=== PATIENT | male | born 1960 | race Caucasian/White ===

== ENCOUNTER 2019-04-27 14:38 | Emergency (ER) | payer OTHER ==
[2019-04-27 15:46] LABS: Urine Blood NEGATIVE (NEG); Urine Glucose NEGATIVE (NEG); Urine Protein NEGATIVE (NEG); Urine Specific Gravity 1.025 (1.005-1.030)
[2019-04-27 15:59] LABS: Urine Bacteria NONE SEEN /HPF (NONE SEEN); Urine Culture Reflex Order NOT NEEDED; Urine RBC <5 /HPF (NONE SEEN)
[2019-04-27] MEDS ORDERED: DIAZEPAM 2 MG TABLET ONE (16:03)
[2019-04-27] MEDS ORDERED: NA CHLORIDE 0.9% 1,000 ML ONE (16:04)
[2019-04-27] MEDS ORDERED: MECLIZINE HCL 12.5 MG TAB ONE (16:04)
[2019-04-27] MEDS ORDERED: ONDANSETRON 4 MG/2 ML VIAL ONE (16:04)
[2019-04-27 16:06] LABS: Absolute Lymphocytes (CBC) 1.6 K/uL (0.7-4.9); Basophils % 0.5 % (0-1.3); Eosinophils % 1.1 % (0-4.4); Hematocrit 46.9 % (39.6-49.0); Lymphocytes % 13.3 % (15.3-44.8); MPV 8.6 fL (7.6-11.3); Monocytes % 5.6 % (3.3-12.3); RBC Red Blood Cell Count 5.28 M/uL (4.33-5.43)
[2019-04-27 16:16] LABS: BUN Blood Urea Nitrogen 18 mg/dL (7-18); Bicarbonate 27 mmol/L (21-32); Glucose Level 102 mg/dL (74-106); Potassium 3.6 mmol/L (3.5-5.1); Sodium Level 137 mmol/L (136-145); Troponin (Emerg Dept Use Only) < 0.02 ng/mL (0.0-0.045)
--- NOTE | 2019-04-27 17:22 | RAD REPORT ---
EXAM DESCRIPTION: CT - Head Brain Wo Cont - 04/27/2019 4:55 pm CLINICAL HISTORY: Dizziness, headache COMPARISON: None. TECHNIQUE: Axial 5 mm thick images of the head were obtained without IV contrast. All CT scans are performed using dose optimization technique as appropriate and may include automated exposure control or mA/KV adjustment according to patient size. FINDINGS: No intracranial hemorrhage, mass, edema or shift of mid-line structures. No acute infarcti on changes seen. No abnormal extra-axial fluid collections. Ventricles are normal. Mastoid air cells and visualized portions of the paranasal sinuses are clear. No acute bony findings. IMPRESSION: Negative non-contrast CT head examination.
--- NOTE | 2019-04-27 17:25 | RAD REPORT ---
EXAM DESCRIPTION: CT - Head angio - 04/27/2019 4:55 pm TECHNIQUE: During dynamic enhancement using nonionic IV contrast, axial 1 millimeter thick images of the head were obtained. Sagittal and axial reconstruction images were generated and reviewed. All CT scans are performed using dose optimization technique as appropriate and may include automated exposure control or mA/KV adjustment according to patient size. COMPARISON: CT head same date FINDINGS: No aneurysm or vascular malformation identified. Major venous sinuses are patent. No stenosis, named branch occlusion, vasculitis or other significant vascular finding identifiable. IMPRESSION: Negative CT angio head examination.
--- NOTE | 2019-04-27 17:26 | RAD REPORT ---
EXAM DESCRIPTION: CT - Neck Angio - 04/27/2019 4:57 pm CLINICAL HISTORY: Loss of consciousness, stroke-like symptoms TECHNIQUE: During dynamic enhancement using nonionic IV contrast, axial 2 mm thick images of the nec k were obtained. Sagittal and axial reconstruction images were generated and reviewed. All CT scans are performed using dose optimization technique as appropriate and may include automated exposure control or mA/KV adjustment according to patient size. COMPARISON: CT head same date, CT angio head same date FINDINGS: No aneurysm or vascular malformation identified. No carotid or vertebral dissection. No aortic arch or great vessel origin abnormality seen. Vertebral artery origins unremarkable as well . No stenosis, vasculitis or other significant carotid artery finding. No focal abnormality of either vertebral artery. Basilar artery is normal. Imaged portions of each subclavian artery unremarkable as well. IMPRESSION: Negative CT angio neck examination.
--- NOTE | 2019-04-27 18:04 | EDPHYS ---
Physician Documentation [facility] Name: Saran Lopez Age: 58 yrs Sex: Male : 1960 Arrival Date: 04/27/2019 Time: 14:39 Bed 13 Private MD: None, None ED Physician Douglas Chaves HPI: 04/27 15:54 This 58 yrs old Male presents to ER via Ambulatory with complaints of rn Dizziness. 15:54 The patient presents with sense of spinning. Onset: The symptoms/episode began/occurred rn last night. Context: occurred at home, occurred while the patient was at rest. Modifying factors: The symptoms are alleviated by holding head still, the symptoms are aggravated by movement of head, standing up, changing position. Severity of symptoms: At their worst the symptoms were moderate in the emergency department the symptoms have improved. The patient has experienced similar episodes in the past. Reports here on vacation, had 10-11 beers yesterday, went to bed, was laying down when felt sense of spinning/dizziness, is intermittent, is able to walk without falling, no focal neurological complaint, reports has had dizzy spells in past, reports assoc nausea. Decreased water intake as well. No vision changes, no speech problem. Negative for vomiting/diarrhea. No abd pain.. Historical: - Allergies: 14:49 Codeine; hj 14:49 Morphine; hj - PMHx: 14:49 Hypertension; Hyperlipidemia; hj - PSHx: 14:49 Knee surgery; hj - Immunization history:: Adult Immunizations unknown. - Family history:: not pertinent. - Social history:: Smoking status: Patient/guardian denies using tobacco. - Ebola Screening: : No symptoms or risks identified at this time. - Hospitalizations: : No recent hospitalization is reported. ROS: 15:54 Constitutional: Negative for fever, chills, and weight loss, Eyes: Negative for injury, rn pain, redness, and discharge, ENT: Negative for injury, pain, and discharge, Neck: Negative for injury, pain, and swelling, Cardiovascular: Negative for chest pain, palpitations, and edema, Respiratory: Negative for shortness of breath, cough, wheezing, and pleuritic chest pain, Abdomen/GI: + nausea, negative for vomiting/diarrhea MS/Extremity: Negative for injury and deformity, Skin: Negative for injury, rash, and discoloration, Neuro: Negative for numbness, tingling, and seizure. Exam: 15:54 Constitutional: This is a well developed, well nourished patient who is awake, alert, rn and in no acute distress. Sitting upright wearing sunglasses. Head/Face: Normocephalic, atraumatic. Eyes: Pupils equal round and reactive to light, extra-ocular motions intact. Lids and lashes normal. Conjunctiva and sclera are non-icteric and not injected. Cornea within normal limits. Periorbital areas with no swelling, redness, or edema. ENT: dry MM Neck: Trachea midline, no thyromegaly or masses palpated, and no cervical lymphadenopathy. Supple, full range of motion without nuchal rigidity, or vertebral point tenderness. No Meningismus. Abdomen/GI: soft, non-tender Skin: Warm, dry MS/ Extremity: Pulses equal, no cyanosis. Neurovascular intact. Full, normal range of motion. Equal circumference. Neuro: Awake and alert, GCS 15, oriented to person, place, time, and situation. Cranial nerves II-XII grossly intact. Motor strength 5/5 in all extremities. Sensory grossly intact. Cerebellar exam normal. Vital Signs: 14:49 BP 157 / 83; Pulse 48; Resp 20; Temp 97.8(O); Pulse Ox 100% on R/A; Weight 111.13 kg; hj Height 5 ft. 11 in. (180.34 cm); Pain 2/10; 16:01 BP 131 / 76; Pulse 43; Resp 14; Temp 97.7(TE); Pulse Ox 99% on R/A; mh5 17:01 BP 145 / 84; Pulse 54; Resp 19 S; Pulse Ox 98% on R/A; ca1 17:46 BP 110 / 63; Pulse 44; Resp 13; Temp 97.9(TE); Pulse Ox 98% on R/A; mh5 14:49 Body Mass Index 34.17 (111.13 kg, 180.34 cm) MDM: 15:04 Patient medically screened. rn 16:34 Response to treatment: the patient's symptoms have mildly improved after treatment. ED rn course: Pt feels better, HR dropped to 39, still sinus, going to CT. 17:59 Differential diagnosis: cardiac arrhythmia, generalized weakness, hypovolemia, rn idiopathic dizziness, near-syncope, vertigo. Data reviewed: vital signs, nurses notes, lab test result(s), EKG, radiologic studies, CT scan, and as a result, I will discharge patient. Counseling: I had a detailed discussion with the patient and/or guardian regarding: the historical points, exam findings, and any diagnostic results supporting the discharge/admit diagnosis, lab results, radiology results, the need for outpatient follow up, to return to the emergency department if symptoms worsen or persist or if there are any questions or concerns that arise at home. Special discussion: I discussed with the patient/guardian in detail that at this point there is no indication for admission to the hospital. It is understood, however, that if the symptoms persist or worsen the patient needs to return immediately for re-evaluation. Based on the history and exam findings, there is no indication for further emergent testing or inpatient evaluation. I discussed with the patient/guardian the need to see the milk pickup driver for further evaluation of the symptoms. I discussed with the patient/guardian the need to see the primary care provider for further evaluation of the symptoms. ED course: Patient states feels much better, is ambulatory to bathroom, smiling, states ready to go. Negative CT and CTA head/neck, bradycardia is likely due to his bystolic, a more B1 gareth, and patient states even before bystolic his HR was always around 60. His symptoms improved while HR remained the same and even dropped for a bit, so unlikely bradycardia causing symptoms, likely just made vertigo worse. TOld him will dc home with meclizine prn, zofran prn, needs to hold bystolic until sees his doctor/cardiology, and given return precautions. . 04/27 15:22 Order name: CBC with Diff; Complete Time: 17: rn 04/27 15:22 Order name: Basic Metabolic Panel; Complete Time: 17: rn 04/27 15:22 Order name: Urine Microscopic Only; Complete Time: 16: rn 04/27 15:22 Order name: Troponin (emerg Dept Use Only); Complete Time: 17: rn 04/27 15:44 Order name: Urine Dipstick--Ancillary (enter results) bd 04/27 15:49 Order name: Urine Dipstick-Ancillary; Complete Time: 16:01 EDMS 04/27 14:51 Order name: EKG; Complete Time: 14:52 04/27 15:22 Order name: CT Head Brain wo Cont; Complete Time: 17:34 rn 04/27 15:22 Order name: CT Head Angio; Complete Time: 17:34 rn 04/27 15:22 Order name: CT Neck Angio; Complete Time: 17:34 rn 04/27 15:22 Order name: IV Start; Complete Time: 16:17 rn 04/27 15:22 Order name: Urine Dipstick-Ancillary (obtain specimen); Complete Time: 16:02 rn Administered Medications: 15:55 Drug: NS 0.9% 1000 ml Route: IV; Rate: 1000 ml; Site: right antecubital; ph 17:00 Follow up: Response: No adverse reaction; IV Status: Completed infusion ca1 18:26 Follow up: IV Status: Completed infusion ca1 15:55 Drug: Zofran 4 mg Route: IVP; Site: right antecubital; ph 18:00 Follow up: Response: No adverse reaction; Nausea is decreased ca1 15:55 Drug: Meclizine 50 mg Route: PO; ph 18:00 Follow up: Response: No adverse reaction; Marked relief of symptoms ca1 15:55 Drug: Valium 2 mg Route: PO; ph 18:25 Follow up: Response: No adverse reaction ca1 Disposition: 04/27/19 18:03 Discharged to Home. Impression: Vertigo, Sinus Bradycardia, Dehydration. - Condition is Stable. - Discharge Instructions: Bradycardia, Adult, Dehydration, Adult, Vertigo. - Prescriptions for Zofran ODT 4 mg Oral tablet,disintegrating - place 1 tablet by TRANSLINGUAL route every 8 hours As needed; 20 tablet. Meclizine 25 mg Oral Tablet - take 1 tablet by ORAL route every 8 hours As needed; 30 tablet. - Medication Reconciliation Form, Thank You Letter, Antibiotic Education, Prescription Opioid Use form. - Follow up: Private Physician; When: As needed; Reason: Recheck today's complaints, Re-evaluation by your physician. - Problem is new. - Symptoms have improved. - Notes: Hold bystolic until you get back home, due to bradycardic episodes. Signatures: Dispatcher [employer] EDDouglas Garcia MD MD rn Hall, Patricia, RN RN Catarino Amezquita RN RN Acob, Fouzia, RN RN ca1 Corrections: (The following items were deleted from the chart) 15:58 15:54 Constitutional: Negative for fever, chills, and weight loss, Eyes: Negative for rn injury, pain, redness, and discharge, ENT: Negative for injury, pain, and discharge, Neck: Negative for injury, pain, and swelling, Cardiovascular: Negative for chest pain, palpitations, and edema, Respiratory: Negative for shortness of breath, cough, wheezing, and pleuritic chest pain, Abdomen/GI: + nausea, negative for vomiting/diarrhea MS/Extremity: Negative for injury and deformity, Skin: Negative for injury, rash, and discoloration, Neuro: Negative for numbness, tingling, and seizure, rn 16:00 15:54 Constitutional: This is a well developed, well nourished patient who is awake, rn alert, and in no acute distress. Sitting upright wearing sunglasses. Head/Face: Normocephalic, atraumatic. rn 18:28 18:03 04/27/2019 18:03 Discharged to Home. Impression: Vertigo; Sinus Bradycardia; ca1 Dehydration. Condition is Stable. Forms are Medication Reconciliation Form, Thank You Letter, Antibiotic Education, Prescription Opioid Use. Follow up: Private Physician; When: As needed; Reason: Recheck today's complaints, Re-evaluation by your physician. Problem is new. Symptoms have improved. rn
--- NOTE | 2019-04-27 18:04 | ER ---
Nurse's Notes [facility] Name: Saran Lopez Age: 58 yrs Sex: Male : 1960 Arrival Date: 04/27/2019 Time: 14:39 Bed 13 Private MD: None, None Diagnosis: Vertigo;Sinus Bradycardia;Dehydration Presentation: 04/27 14:46 Presenting complaint: Patient states: [place] from out of town and last night around 10 pm naveed waterman started feeling dizzy, and tightness on my chest, nausea; reports headache, went to urgent care for check up today, was told his HR was on the 50's which is not normal;. Transition of care: patient was not received from another setting of care. Onset of symptoms was April 27, 2019. Risk Assessment: Do you want to hurt yourself or someone else? Patient reports no desire to harm self or others. Initial Sepsis Screen: Does the patient meet any 2 criteria? No. Patient's initial sepsis screen is negative. Does the patient have a suspected source of infection? No. Patient's initial sepsis screen is negative. Care prior to arrival: None. 14:46 Method Of Arrival: Ambulatory 14:46 Acuity: JOSE 2 ph Historical: - Allergies: 14:49 Codeine; hj 14:49 Morphine; hj - PMHx: 14:49 Hypertension; Hyperlipidemia; hj - PSHx: 14:49 Knee surgery; hj - Immunization history:: Adult Immunizations unknown. - Family history:: not pertinent. - Social history:: Smoking status: Patient/guardian denies using tobacco. - Ebola Screening: : No symptoms or risks identified at this time. - Hospitalizations: : No recent hospitalization is reported. Screenin:08 Abuse screen: Denies threats or abuse. Denies injuries from another. Nutritional ph screening: On. Tuberculosis screening: No symptoms or risk factors identified. Fall Risk No fall in past 12 months (0 pts). No secondary diagnosis (0 pts). IV access (20 points). Ambulatory Aid- None/Bed Rest/Nurse Assist (0 pts). Gait- Weak (10 pts.). Mental Status- Oriented to own ability (0 pts). Total Serrano Fall Scale indicates Low Risk Score (25-44 pts). Fall prevention measures have been instituted. Side Rails Up X 2 Placed close to Nursing Station Frequent Obs/Assesments occuring Family Present and informed to notify staff if they need to leave bedside As available Patient and Family Educated on Fall Prevention Program and strategies. Assessment: 15:15 General: Appears in no apparent distress. comfortable, well groomed, Behavior is calm, ph cooperative, appropriate for age, Denies fever, feeling ill. Pain: Complains of pain in head. Neuro: Level of Consciousness is awake, alert, obeys commands, Oriented to person, place, time, situation, Moves all extremities. Full function Speech is normal, Reports dizziness, headache. Cardiovascular: Reports fatigue, lightheadedness, nausea, Denies chest pain, palpitations, shortness of breath, vomiting, Capillary refill < 3 seconds in bilateral fingers Patient's skin is warm and dry. Rhythm is sinus bradycardia. Respiratory: Airway is patent Respiratory effort is even, unlabored, Respiratory pattern is regular, symmetrical. GI: Reports nausea, Patient currently denies abdominal pain, diarrhea, vomiting. : No signs and/or symptoms were reported regarding the genitourinary system. Derm: Skin is intact, Skin is pink, warm \T\ dry. Musculoskeletal: Circulation, motion, and sensation intact. Range of motion: intact in all extremities. 16:17 Reassessment: Patient appears in no apparent distress at this time. Patient and/or ph family updated on plan of care and expected duration. Pain level reassessed. Patient is alert, oriented x 3, equal unlabored respirations, skin warm/dry/pink. Pt resting quietly, awaiting lab results and CT scan, SO at bedside. 17:01 Reassessment: Patient appears in no apparent distress at this time. Patient and/or ca1 family updated on plan of care and expected duration. Pain level reassessed. Patient is alert, oriented x 3, equal unlabored respirations, skin warm/dry/pink. Pt from CT scan with nurse and monitor. Pt tolerated procedure well without C/O N/V. 18:10 Reassessment: Patient appears in no apparent distress at this time. Patient is alert, ca1 oriented x 3, equal unlabored respirations, skin warm/dry/pink. Vital Signs: 14:49 BP 157 / 83; Pulse 48; Resp 20; Temp 97.8(O); Pulse Ox 100% on R/A; Weight 111.13 kg; hj Height 5 ft. 11 in. (180.34 cm); Pain 2/10; 16:01 BP 131 / 76; Pulse 43; Resp 14; Temp 97.7(TE); Pulse Ox 99% on R/A; mh5 17:01 BP 145 / 84; Pulse 54; Resp 19 S; Pulse Ox 98% on R/A; ca1 17:46 BP 110 / 63; Pulse 44; Resp 13; Temp 97.9(TE); Pulse Ox 98% on R/A; mh5 14:49 Body Mass Index 34.17 (111.13 kg, 180.34 cm) ED Course: 14:39 Patient arrived in ED. dl4 14:39 None, None is Private Physician. dl4 14:48 Triage completed. hj 14:50 Arm band placed on left wrist. hj 15:04 Douglas Chaves MD is Attending Physician. rn 15:31 EKG done, by histopath tech. reviewed by Douglas Chaves MD. 3 15:34 Candie Raphael, RN is Primary Nurse. ph 15:40 Initial lab(s) drawn, by sd, sent to lab. Inserted saline lock: 20 gauge in right ph antecubital area, using aseptic technique. Blood collected. 15:41 Radiology exam delayed due to lab results not completed at this time. (BUN/Creatinine) nj IV insertion attempt and/or patient not having appropriate IV at this time. 16:01 Patient has correct armband on for positive identification. Placed in gown. Bed in low mh5 position. Call light in reach. Side rails up X 1. Adult w/ patient. Warm blanket given. cafeteria monitor on. Pulse ox on. NIBP on. 16:02 Urine Dipstick--Ancillary (enter results) Sent. [facility] 16:02 Urine collected: clean catch specimen, clear. mh5 16:[address] nj 16:56 CT Head Brain wo Cont In Process Unspecified. EDMS 16:56 CT Head Angio In Process Unspecified. EDMS 16:56 CT Neck Angio In Process Unspecified. EDMS 16:56 CT completed. Patient tolerated procedure well. Patient moved to CT. Patient moved back nd from CT. 18:20 No provider procedures requiring assistance completed. ca1 18:20 IV discontinued, intact, bleeding controlled. ca1 Administered Medications: 15:55 Drug: NS 0.9% 1000 ml Route: IV; Rate: 1000 ml; Site: right antecubital; ph 17:00 Follow up: Response: No adverse reaction; IV Status: Completed infusion ca1 18:26 Follow up: IV Status: Completed infusion ca1 15:55 Drug: Zofran 4 mg Route: IVP; Site: right antecubital; ph 18:00 Follow up: Response: No adverse reaction; Nausea is decreased ca1 15:55 Drug: Meclizine 50 mg Route: PO; ph 18:00 Follow up: Response: No adverse reaction; Marked relief of symptoms ca1 15:55 Drug: Valium 2 mg Route: PO; ph 18:25 Follow up: Response: No adverse reaction ca1 Outcome: 18:03 Discharge ordered by . rn 18:20 Discharged to home ambulatory, with family. ca1 18:20 Condition: stable 18:20 Discharge instructions given to patient, Instructed on discharge instructions, follow up and referral plans. medication usage, Demonstrated understanding of instructions, follow-up care, medications, Prescriptions given X 2. 18:28 Patient left the ED. ca1 Signatures: Dispatcher [employer] EDMS Douglas Chaves MD MD rn Hall, Patricia, RN RN ph Joaquin, Henry, RN RN hj Jordan, Nathan nj Martinez, Maria 5 Asuncion [place] 3 Jose Manuel Leo 4 Fouzia Medina RN RN ca1 Corrections: (The following items were deleted from the chart) 14:51 14:49 Pulse 48bpm; Resp 20bpm; Pulse Ox 100% RA; Temp 97.8F Oral; 111.13 kg; Height 5 hj ft. 11 in.; BMI: 34.1; Pain 2/10; hj 14:52 14:49 Pulse 48bpm; Resp 20bpm; Pulse Ox 100% RA; Temp 97.8F Oral; 111.13 kg; Height 5 hj ft. 11 in.; BMI: 34.1; Pain 2/10; hj 16:21 14:46 Acuity: JOSE 3 hj ph 17:03 17:01 BP 145 / 84; Pulse 54bpm; Resp 19bpm; Pulse Ox 98% RA; ca1 ca1 18:27 18:27 No provider procedures requiring assistance completed. ca1 ca1
--- NOTE | 2019-04-28 14:51 | EKG ---
Test Date: 2019-04-27 Test Time: 15:01:05 Supervisor Customer Records Division: DONALD MEASUREMENT RESULTS: Intervals: Rate: 44 GA: 196 QRSD: 96 QT: 438 QTc: 374 [place]: P: 19 GA: 196 QRS: -7 T: 3 INTERPRETIVE STATEMENTS: Marked sinus bradycardia with marked sinus arrhythmia Minimal voltage criteria for LVH, may be normal variant Abnormal ECG No previous ECG available for comparison Electronically Signed On 04-28-19 14:47:34 CDT by Viraj Jordan
== END 2019-04-27 18:28 | disposition home or self-care (01) ==
LOC: ER 14:38
DX: E86.0 Dehydration (principal); R00.1 Bradycardia, unspecified; I10 Essential (primary) hypertension; Z88.5 Allergy status to narcotic agent
CPT/HCPCS: 36415; 70450; 70496; 70498; 80048; 81003; 81015; 84484; 85025; 93005; 96361; 96374; 99285; J2405; J7030; Q9967